=== PATIENT | female | born 1995 | race American Indian/Alaskan Native ===

== ENCOUNTER 2017-04-11 11:39 | Inpatient (IN) | payer BC, MEDICAID ==
[2017-04-11] MEDS ORDERED: SUBLIMAZE IV PRN (12:30)
[2017-04-11] MEDS ORDERED: MINERAL OIL PO PRN (12:30)
[2017-04-11] MEDS ORDERED: ZOFRAN IV PRN (12:30)
[2017-04-11] MEDS ORDERED: XYLOCAINE 2% INFILTRATI ONE (12:30)
[2017-04-11] MEDS ORDERED: BRETHINE SUB-Q PRN (12:30)
[2017-04-11] MEDS ORDERED: ePHEDrine SULFATE IV PRN (12:30)
[2017-04-11] MEDS ORDERED: HEPARIN ONE (12:36)
[2017-04-11] MEDS ORDERED: PITOCin/NS 20 UNIT/1000ML DRIP 20 UNITS/1,000 ML BAG IV SCH (13:00)
[2017-04-11 13:47] LABS: Mean Corpuscular HGB Conc 32 % (30-34); Mean Corpuscular Hemoglobin 28 pg (28-32); Mean Corpuscular Volume 85 fl (79-97); Platelet Count 276 K/mm3 (140-440); Red Blood Count 4.34 M/mm3 (3.65-5.03); Red Cell Distribution Width 15.5 % (13.2-15.2)
--- NOTE | 2017-04-11 14:13 | History and Physical Report ---
History of Present Illness Date of examination: 04/11/17 (pt sent from [facility] with YADIEL 4.6; IUGR) Date of admission: 04/11/17 11:39 History of present illness: EDC Confirmation: 03/26/2017 Gestational Age: 15 3/7 weeks Past Medical History Uterine Surgery (not C/S): negative Operations: negative Hospitalizations: negative Anesthesia Complications: negative Abnormal PAP: negative Uterine Anomaly: negative DESHAUN Exposure: negative Infertility: negative Infection History HIV Risk Eval: no Hx of STD: chlamydia Genetic History Patient's Age >35 years: no Thalassemia Mom: no Dad: no Neural Tube Defect Mom: no Dad: no Down's Syndrome Mom: no Dad: no Eugenio-Sachs Mom: no Dad: no Sickle Cell Disease/Trait Mom: no Dad: no Hemophilia Mom: no Dad: no Muscular Dystrophy Mom: no Dad: no Cystic Fibrosis Mom: no Dad: no Senthil Chorea Mom: no Dad: no Mental Retardation Mom: no Dad: no Fragile X Mom: no Dad: no Other Genetic/Chromosomal Disorder Mom: no Dad: no Child w/other defect Mom: no Dad: no >3 Spont. AB or stillbirth: no Meds/Drugs/ETOH since LMP: no Vital Signs: Patient Profile: 20 Years Old Female LMP: 06/19/2016 Height: 70 inches Weight: 333 pounds BP sittin / 70 Pt. in pain? no Vitals Entered By: Antoinette Pate (October 05, 2016 10:54 AM) Menstrual History: LMP (date): 06/19/2016 EDC by LMP: 03/26/2017 Best Working EDC: 03/26/2017 Past History : 1 Term Births: 0 Premature Births: 0 Living Children: 0 Para: 0 Mult. Births: 0 Prev : 0 Prev. attempt? 0 Aborta: 0 Elect. Ab: 0 Spont. 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 of genital herpes: no Hx of STD: chlamydia Active Medications: CONCERTA () ZITHROMAX 250 MG TABS (AZITHROMYCIN) Take 4 po now BUPROPION HCL TABS (BUPROPION HCL TABS) Current Allergies (reviewed today): No known allergies Past Medical History: Reviewed history from 08/03/2016 and no changes required: Depression ADHD Past Surgical History: negative Family History Summary: Reviewed history and no changes required: 10/05/2016 Other family member - Has Family History of Diabetes - Entered On: 08/03/2016 Other family member - Has No Family History of Breast Cancer - Entered On: 2016 Other family member - Has No Family History of Colon Cancer - Entered On: 2016 Other family member - Has No Family History of Ovarvian Cancer - Entered On: Social History: Patient is single Smoking History: Patient has never smoked. Risk Factors: Smoked Tobacco Use: Never smoker Drug use: no HIV high-risk behavior: no Alcohol use: no Exercise: no Seatbelt use: 100 % Review of Systems See HPI Laboratory Results Date/Time Collected: 10/05/2016 Urine HCG: positive PHYSICAL EXAM HEENT: normocephalic, no lesions or deformities Neck/Thyroid: supple, thyroid normal Skin no significant abnormal lesions or rashes Chest: respiratory effort normal, clear to auscultation Breasts: skin/areolae normal, no masses, no nipple discharge, no erythema/warmth /tenderness, and axillae normal. 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 No evidence of cystocele or rectocele. Cervix: No lesions; no cervical motion tenderness Uterus: unable to palpate due to obesity Adnexae: unable to palpate due to obesity Rectovaginal: exam defered Past History - Obstetrical History Expected Date of Delivery: 04/10/17 Actual Gestation: 40 Week(s) 1 Day(s) : 1 Para: 0 Hx # Term Pregnancies: 0 Number of Pregnancies: 0 Spontaneous Abortions: 0 Induced : 0 Number of Living Children: 0 Medications and Allergies Allergies Allergy/AdvReac Type Severity Reaction Status Date / Time No Known Allergies Allergy Unverified 04/11/17 11:40 Active Meds: Active Medications Ephedrine Sulfate (Ephedrine Sulfate) 10 mg IV Q2M PRN PRN Reason: Hypotension Fentanyl (Sublimaze) 100 mcg IV Q2H PRN PRN Reason: Labor Pain Lactated Ringer's (Lactated Ringers) 1,000 mls @ 125 mls/hr IV DIRECT SOPHIA Oxytocin/Sodium Chloride (Pitocin/Ns 20 Unit/1000ml Drip) 20 units in 1,000 mls @ 125 mls/hr IV DIRECT SOPHIA Oxytocin/Sodium Chloride (Pitocin/Ns 30 Unit/500ml) 30 units in 500 mls @ 4 mls /hr IV Q30MIN SOPHIA PRN Reason: Protocol Mineral Oil (Mineral Oil) 30 ml PO QHS PRN PRN Reason: Constipation Ondansetron HCl (Zofran) 4 mg IV Q8H PRN PRN Reason: Nausea And Vomiting Terbutaline Sulfate (Brethine) 0.25 mg SUB-Q ONCE PRN PRN Reason: Hyperstimulation/Hypertonicity - Vital Signs Vital signs: Vital Signs Temp Pulse Resp BP 98.6 F 125 H 20 124/62 04/11/17 12:51 04/11/17 12:51 04/11/17 12:51 04/11/17 12:51 Temp Pulse Resp BP Pulse Ox 98.6 F 125 H 20 124/62 04/11/17 12:51 04/11/17 13:06 04/11/17 12:51 04/11/17 13:06 - Physical Exam Breasts: Positive: deferred Cardiovascular: Regular rate, Normal S1, Normal S2 Lungs: Positive: Normal air movement Abdomen: Positive: normal appearance, soft, normal bowel sounds. Negative: distention, tenderness Genitourinary (Female): Positive: normal external genitalia, normal perenium Vulva: both: normal Vagina: Positive: normal moisture. Negative: discharge Cervix: Negative: lesion, discharge Uterus: Positive: normal size, normal contour Adnexa: both: normal Anus/Rectum: Positive: normal perianal skin, heme negative. Negative: rectal mass, hemorrhoids Extremities: Positive: edema Deep Tendon Reflex Grade: Normal +2 - Obstetrical FHR: category 1 Uterine Contraction Monitor Mode: External Cervical Dilatation: 3 (SROM meconium) Cervical Effacement Percentage: 70 station: -1 Uterine Contraction Pattern: Irregular Uterine Tone Measurement Phase: Resting Uterine Contraction Intensity: Mild Results Result Diagrams: 04/11/17 13:30 Abnormal lab results 04/11/17 Range/Units 13:30 WBC 17.0 H (4.5-11.0) K/mm3 RDW 15.5 H (13.2-15.2) % All other labs normal. Strep Gp B MATT Negative HBsAg Screen Negative Negative *1 Rubella Antibodies, IgG 1.37 index Immune >0.99 *2 Non-immune <0.90 Equivocal 0.90 - 0.99 Immune >0.99 ABO Grouping O *3 Rh Factor Positive *4 Please note: Prior records for this patient's ABO / Rh type are not available for additional verification. Antibody Screen Negative Negative *5 RPR Non Reactive Non Reactive *6 WBC [H] 12.6 x10E3/uL 3.4-10.8 *7 RBC 4.26 x10E6/uL 3.77-5.28 *8 Hemoglobin 11.9 g/dL 11.1-15.9 *9 Hematocrit 35.7 % 34.0-46.6 *10 MCV 84 fL 79-97 *11 MCH 27.9 pg 26.6-33.0 *12 MCHC 33.3 g/dL 31.5-35.7 *13 RDW 14.9 % 12.3-15.4 *14 Platelets 313 x10E3/uL 150-379 *15 Neutrophils 78 % *16 Lymphs 17 % *17 Monocytes 4 % *18 Eos 1 % *19 Basos 0 % *20 ! Immature Cells <No Reported Value> *21 Neutrophils (Absolute) [H] 9.8 x10E3/uL 1.4-7.0 *22 Lymphs (Absolute) 2.2 x10E3/uL 0.7-3.1 *23 Monocytes(Absolute) 0.5 x10E3/uL 0.1-0.9 *24 Eos (Absolute) 0.1 x10E3/uL 0.0-0.4 *25 Baso (Absolute) 0.0 x10E3/uL 0.0-0.2 *26 ! Immature Granulocytes 0 % *27 ! Immature Grans (Abs) 0.0 x10E3/uL 0.0-0.1 *28 ! NRBC <No Reported Value> *29 Hematology Comments: <No Reported Value> *30 Tests: (3) HB Solu + Rflx [facility] ([id number]) Hemoglobin (Hgb) Solubility Negative Negative *33 Tests: (4) Panel 762428 ([id number]) HIV Screen 4th Generation wRfx Non Reactive Non Reactive *34 Tests: (5) HCV Ab w/Rflx to Verification ([id number]) ! HCV Ab <0.1 s/co ratio 0.0-0.9 *35 Tests: (6) Comment: ([id number]) ! Comment: SPR[facility] *36 Non reactive HCV antibody screen is consistent with no HCV infection, unless recent infection is suspected or other evidence exists to indicate HCV infection. Tests: (7) Urine Culture, Routine ([id number]) Urine Culture, Routine Final report *37 Tests: (8) Result ([id number]) ! Result 1 No growth *38 Assessment and Plan - Patient Problems (1) IUGR (intrauterine growth restriction) Onset Date: ~03/21/17 Current Visit: Yes Status: Acute Plan to address problem: EFW 11% 5-15 as per [facility] report (2) Oligohydramnios Onset Date: ~04/11/17 Current Visit: Yes Status: Acute Qualifiers: Fetus number: single or unspecified fetus Trimester: third trimester Qualified Code(s): O41.03X0 - Oligohydramnios, third trimester, not applicable or unspecified Plan to address problem: Pt sent from [facility] office this morning where she had an YADIEL 4.6. Pt called out to L&D desk with c/o poss rupture of membranes. SVE 3,70,-1 Meconium stained fluid NICU notified. (3) Morbid obesity with BMI of 50.0-59.9, adult Onset Date: ~04/11/17 Current Visit: Yes Status: Acute Plan to address problem: 21yo @ 40 weeks with IUGR,Oligo,obesity, meconium stained fluid. GBS negative Orders in EMR aware of pt.
[2017-04-11] MEDS: PITOCin/NS 30 UNIT/500ML 30 UNITS/500 ML BAG IV SCH ×3 (15:32→18:43)
[2017-04-11] MEDS: LACTATED RINGERS 1,000 ML IV SCH ×2 (16:24→17:27)
--- NOTE | 2017-04-11 17:32 | Progress Note ---
Assessment and Plan pt resting Voicing no c/o SVE 6,90,-1 Pit @ 12mu Continue POC Anticipate delivery - Patient Problems (1) IUGR (intrauterine growth restriction) Onset Date: ~03/21/17 Current Visit: Yes Status: Acute (2) Oligohydramnios Onset Date: ~04/11/17 Current Visit: Yes Status: Acute Qualifiers: Fetus number: single or unspecified fetus Trimester: third trimester Qualified Code(s): O41.03X0 - Oligohydramnios, third trimester, not applicable or unspecified (3) Morbid obesity with BMI of 50.0-59.9, adult Onset Date: ~04/11/17 Current Visit: Yes Status: Acute Subjective - Subjective Date of service: 04/11/17 (comfortable with epidural) Interval history: EDC Confirmation: 03/26/2017 Gestational Age: 15 3/7 weeks Past Medical History Uterine Surgery (not C/S): negative Operations: negative Hospitalizations: negative Anesthesia Complications: negative Abnormal PAP: negative Uterine Anomaly: negative DESHAUN Exposure: negative Infertility: negative Infection History HIV Risk Eval: no Hx of STD: chlamydia Genetic History Patient's Age >35 years: no Thalassemia Mom: no Dad: no Neural Tube Defect Mom: no Dad: no Down's Syndrome Mom: no Dad: no Eugenio-Sachs Mom: no Dad: no Sickle Cell Disease/Trait Mom: no Dad: no Hemophilia Mom: no Dad: no Muscular Dystrophy Mom: no Dad: no Cystic Fibrosis Mom: no Dad: no Senthil Chorea Mom: no Dad: no Mental Retardation Mom: no Dad: no Fragile X Mom: no Dad: no Other Genetic/Chromosomal Disorder Mom: no Dad: no Child w/other defect Mom: no Dad: no >3 Spont. AB or stillbirth: no Meds/Drugs/ETOH since LMP: no Vital Signs: Patient Profile: 20 Years Old Female LMP: 06/19/2016 Height: 70 inches Weight: 333 pounds BP sittin / 70 Pt. in pain? no Vitals Entered By: Antoinette Pate (October 05, 2016 10:54 AM) Menstrual History: LMP (date): 06/19/2016 EDC by LMP: 03/26/2017 Best Working EDC: 03/26/2017 Past History : 1 Term Births: 0 Premature Births: 0 Living Children: 0 Para: 0 Mult. Births: 0 Prev : 0 Prev. attempt? 0 Aborta: 0 Elect. Ab: 0 Spont. 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 of genital herpes: no Hx of STD: chlamydia Active Medications: CONCERTA () ZITHROMAX 250 MG TABS (AZITHROMYCIN) Take 4 po now BUPROPION HCL TABS (BUPROPION HCL TABS) Current Allergies (reviewed today): No known allergies Past Medical History: Reviewed history from 08/03/2016 and no changes required: Depression ADHD Past Surgical History: negative Family History Summary: Reviewed history and no changes required: 10/05/2016 Other family member - Has Family History of Diabetes - Entered On: 08/03/2016 Other family member - Has No Family History of Breast Cancer - Entered On: 2016 Other family member - Has No Family History of Colon Cancer - Entered On: 2016 Other family member - Has No Family History of Ovarvian Cancer - Entered On: Social History: Patient is single Smoking History: Patient has never smoked. Risk Factors: Smoked Tobacco Use: Never smoker Drug use: no HIV high-risk behavior: no Alcohol use: no Exercise: no Seatbelt use: 100 % Review of Systems See HPI Laboratory Results Date/Time Collected: 10/05/2016 Urine HCG: positive PHYSICAL EXAM HEENT: normocephalic, no lesions or deformities Neck/Thyroid: supple, thyroid normal Skin no significant abnormal lesions or rashes Chest: respiratory effort normal, clear to auscultation Breasts: skin/areolae normal, no masses, no nipple discharge, no erythema/warmth /tenderness, and axillae normal. 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 No evidence of cystocele or rectocele. Cervix: No lesions; no cervical motion tenderness Uterus: unable to palpate due to obesity Adnexae: unable to palpate due to obesity Rectovaginal: exam defered Patient reports: movement normal Objective - Vital Signs Vital Signs: Vital Signs - 12hr 04/11/17 04/11/17 04/11/17 12:51 13:06 16:06 Temperature 98.6 F Pulse Rate 125 H 125 H 121 H Respiratory 20 Rate Blood Pressure 124/62 Blood Pressure 124/62 [Left] O2 Sat by Pulse 100 Oximetry 04/11/17 04/11/17 04/11/17 16:11 16:16 16:21 Temperature Pulse Rate 114 H 117 H 114 H Respiratory Rate Blood Pressure Blood Pressure [Left] O2 Sat by Pulse 100 100 100 Oximetry 04/11/17 04/11/17 04/11/17 16:36 16:41 16:46 Temperature Pulse Rate 124 H 135 H 125 H Respiratory Rate Blood Pressure 133/73 Blood Pressure [Left] O2 Sat by Pulse 100 100 100 Oximetry 04/11/17 04/11/17 04/11/17 16:51 16:56 17:01 Temperature Pulse Rate 121 H 122 H 124 H Respiratory Rate Blood Pressure Blood Pressure [Left] O2 Sat by Pulse 100 100 100 Oximetry 04/11/17 04/11/17 04/11/17 17:06 17:09 17:11 Temperature Pulse Rate 134 H 135 H 128 H Respiratory Rate Blood Pressure Blood Pressure [Left] O2 Sat by Pulse 100 78 L 100 Oximetry 04/11/17 04/11/17 04/11/17 17:16 17:17 17:19 Temperature Pulse Rate 130 H 117 H 123 H Respiratory Rate Blood Pressure 134/70 136/70 Blood Pressure [Left] O2 Sat by Pulse 99 Oximetry - Exam Breasts: deferred Cardiovascular: Regular rate Lungs: Normal air movement Abdomen: Present: normal appearance, soft. Absent: distention, tenderness Uterus: Present: normal FHR: auscultation normal, category 1 Uterine Contraction Monitor Mode: External Cervical Dilatation: 6 Cervical Effacement Percentage: 90 station: -1 Uterine Contraction Pattern: Regular Uterine Tone Measurement Phase: Resting Uterine Contraction Intensity: Moderate Extremities: edema Deep Tendon Reflex Grade: Normal +2 - Labs Labs: Abnormal Labs 04/11/17 13:30 WBC 17.0 H RDW 15.5 H Laboratory Results - last 24 hr 04/11/17 04/11/17 13:30 13:30 WBC 17.0 H RBC 4.34 Hgb 12.0 Hct 37.0 MCV 85 MCH 28 MCHC 32 RDW 15.5 H Plt Count 276 Blood Type O POSITIVE Antibody Screen Negative
[2017-04-11] MEDS ORDERED: fentaNYL-BUPIV 2 MCG/ML-0.125% 200 MCG/100 ML BAG EPIDURAL ONE (17:54)
--- NOTE | 2017-04-11 21:55 | Procedure Note ---
OB Delivery Note - Delivery Date of Delivery: 04/11/17 Surgeon: MEREDITH KRUEGER Estimated blood loss: 300cc - Vaginal Delivery position: OA Intrapartum events: other(please specify) (Oligohydramnios) Delivery augmentation: rupture of membranes Delivery monitor: external FHT, external uterine Route of delivery: vacuum extraction Indicators for instrumentation: maternal exhaustion Delivery placenta: spontaneous Episiotomy: none Delivery laceration: 1st degree Delivery repair: vicryl Anesthesia: epidural Delivery comments: NICU personnel present at delivery - Infant A at 1 minute: 8 at 5 minutes: 9 Gender: Female
[2017-04-11] MEDS ORDERED: PHENERGAN PO PRN (23:42)
[2017-04-11] MEDS ORDERED: DULCOLAX PR PRN (23:42)
[2017-04-11] MEDS ORDERED: BENADRYL PO PRN (23:42)
[2017-04-11] MEDS ORDERED: MILK OF MAGNESIA PO PRN (23:42)
[2017-04-11] MEDS ORDERED: TYLENOL PO PRN (23:42)
[2017-04-11] MEDS ORDERED: TUCKS PAD TP PRN (23:42)
[2017-04-11] MEDS ORDERED: NORCO 5/325 PO PRN (23:42)
[2017-04-11] MEDS ORDERED: SODIUM CHLORIDE FLUSH SYRINGE 10 ML IV PRN (23:42)
[2017-04-12] MEDS: MOTRIN PO SCH ×3 (00:08→12:01)
[2017-04-12] MEDS: COLACE PO SCH ×3 (00:55→22:35)
--- NOTE | 2017-04-12 07:03 | Progress Note ---
Assessment and Plan - Patient Problems (1) Spontaneous vaginal delivery Onset Date: ~04/11/17 Current Visit: Yes Status: Acute Plan to address problem: Pt resting Holding baby VSS with exception of tachycardia No c/o chest pain nor SOB FF below umb Lochia small Perineum slight swelling intact H&H pending Doing well s/p vag delivery P: encouraged OOB to ambulate and to increase hydration Continue pathway. Will cont to monitor VS Subjective - Subjective Date of service: 04/12/17 (pt rest No c/o voiced) Principal diagnosis: girl 04-11-17 Interval history: EDC Confirmation: 03/26/2017 Gestational Age: 15 3/7 weeks Past Medical History Uterine Surgery (not C/S): negative Operations: negative Hospitalizations: negative Anesthesia Complications: negative Abnormal PAP: negative Uterine Anomaly: negative DESHAUN Exposure: negative Infertility: negative Infection History HIV Risk Eval: no Hx of STD: chlamydia Genetic History Patient's Age >35 years: no Thalassemia Mom: no Dad: no Neural Tube Defect Mom: no Dad: no Down's Syndrome Mom: no Dad: no Eugenio-Sachs Mom: no Dad: no Sickle Cell Disease/Trait Mom: no Dad: no Hemophilia Mom: no Dad: no Muscular Dystrophy Mom: no Dad: no Cystic Fibrosis Mom: no Dad: no Senthil Chorea Mom: no Dad: no Mental Retardation Mom: no Dad: no Fragile X Mom: no Dad: no Other Genetic/Chromosomal Disorder Mom: no Dad: no Child w/other defect Mom: no Dad: no >3 Spont. AB or stillbirth: no Meds/Drugs/ETOH since LMP: no Vital Signs: Patient Profile: 20 Years Old Female LMP: 06/19/2016 Height: 70 inches Weight: 333 pounds BP sittin / 70 Pt. in pain? no Vitals Entered By: Antoinette Pate (October 05, 2016 10:54 AM) Menstrual History: LMP (date): 06/19/2016 EDC by LMP: 03/26/2017 Best Working EDC: 03/26/2017 Past History : 1 Term Births: 0 Premature Births: 0 Living Children: 0 Para: 0 Mult. Births: 0 Prev : 0 Prev. attempt? 0 Aborta: 0 Elect. Ab: 0 Spont. 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 of genital herpes: no Hx of STD: chlamydia Active Medications: CONCERTA () ZITHROMAX 250 MG TABS (AZITHROMYCIN) Take 4 po now BUPROPION HCL TABS (BUPROPION HCL TABS) Current Allergies (reviewed today): No known allergies Past Medical History: Reviewed history from 08/03/2016 and no changes required: Depression ADHD Past Surgical History: negative Family History Summary: Reviewed history and no changes required: 10/05/2016 Other family member - Has Family History of Diabetes - Entered On: 08/03/2016 Other family member - Has No Family History of Breast Cancer - Entered On: 2016 Other family member - Has No Family History of Colon Cancer - Entered On: 2016 Other family member - Has No Family History of Ovarvian Cancer - Entered On: Social History: Patient is single Smoking History: Patient has never smoked. Risk Factors: Smoked Tobacco Use: Never smoker Drug use: no HIV high-risk behavior: no Alcohol use: no Exercise: no Seatbelt use: 100 % Review of Systems See HPI Laboratory Results Date/Time Collected: 10/05/2016 Urine HCG: positive PHYSICAL EXAM HEENT: normocephalic, no lesions or deformities Neck/Thyroid: supple, thyroid normal Skin no significant abnormal lesions or rashes Chest: respiratory effort normal, clear to auscultation Breasts: skin/areolae normal, no masses, no nipple discharge, no erythema/warmth /tenderness, and axillae normal. 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 No evidence of cystocele or rectocele. Cervix: No lesions; no cervical motion tenderness Uterus: unable to palpate due to obesity Adnexae: unable to palpate due to obesity Rectovaginal: exam defered Patient reports: appetite normal, voiding normally, pain well controlled, ambulating normally : doing well Objective - Vital Signs Latest vital signs: Vital Signs Temp Pulse Resp BP BP Pulse Ox 04/12/17 04:14 98.8 F 127 H 18 127/58 98 04/11/17 23:53 127/50 04/11/17 23:50 98.8 F 139 H 18 127/50 99 04/11/17 22:59 135 H 99 04/11/17 22:54 100 04/11/17 22:53 136 H 100 04/11/17 22:48 118 H 100 04/11/17 22:43 139 H 100 04/11/17 22:39 167 H 78 L 04/11/17 22:38 151 H 99 04/11/17 22:35 136 H 102/51 04/11/17 22:33 73 94 04/11/17 22:32 88 04/11/17 22:27 144 H 100 04/11/17 22:23 98.7 F 22 04/11/17 22:22 141 H 112/58 04/11/17 22:10 140 H 100 04/11/17 22:05 138 H 100 04/11/17 22:04 151 H 140/59 88 04/11/17 21:35 144 H 109/51 04/11/17 21:24 131 H 109/53 04/11/17 21:04 61 L 04/11/17 21:01 150 H 89 04/11/17 20:59 115 H 100 04/11/17 20:54 116 H 100 04/11/17 20:49 123 H 100 04/11/17 20:44 109 H 100 04/11/17 20:39 112 H 99 04/11/17 20:34 111 H 100 04/11/17 20:29 173 H 100 04/11/17 20:24 131 H 114/53 100 04/11/17 20:19 126 H 100 04/11/17 20:14 129 H 100 04/11/17 20:09 122 H 100 04/11/17 20:04 119 H 100 04/11/17 19:59 133 H 100 04/11/17 19:54 115 H 100 04/11/17 19:49 116 H 100 04/11/17 19:47 122 H 111/51 04/11/17 19:44 124 H 100 11/29/17 19:42 98.1 F 20 04/11/17 19:39 122 H 100 04/11/17 19:34 119 H 100 04/11/17 19:29 123 H 100 04/11/17 19:24 119 H 100 04/11/17 19:19 117 H 100 04/11/17 19:14 129 H 100 04/11/17 19:09 125 H 100 04/11/17 19:04 120 H 100 04/11/17 18:59 125 H 100 04/11/17 18:54 128 H 100 04/11/17 18:49 119 H 100 04/11/17 18:44 111 H 100 04/11/17 18:39 113 H 100 04/11/17 18:34 117 H 100 04/11/17 18:29 111 H 100 04/11/17 18:24 114 H 100 04/11/17 18:19 119 H 100 04/11/17 18:14 121 H 100 04/11/17 18:10 18 04/11/17 18:09 114 H 100 04/11/17 18:04 112 H 100 04/11/17 17:59 114 H 100 04/11/17 17:54 114 H 100 04/11/17 17:49 127 H 100 04/11/17 17:44 127 H 100 04/11/17 17:41 125 H 108/54 04/11/17 17:39 122 H 109/57 100 04/11/17 17:37 122 H 107/53 04/11/17 17:34 123 H 127/72 99 04/11/17 17:19 123 H 136/70 04/11/17 17:17 117 H 134/70 04/11/17 17:16 130 H 99 04/11/17 17:11 128 H 100 04/11/17 17:09 135 H 78 L 04/11/17 17:06 134 H 100 04/11/17 17:01 124 H 100 04/11/17 16:56 122 H 100 04/11/17 16:51 121 H 100 04/11/17 16:46 125 H 100 04/11/17 16:41 135 H 100 04/11/17 16:36 124 H 133/73 100 04/11/17 16:21 114 H 100 04/11/17 16:16 117 H 100 04/11/17 16:11 114 H 100 04/11/17 16:06 121 H 100 04/11/17 13:06 125 H 124/62 04/11/17 12:51 98.6 F 125 H 20 124/62 Intake and Output 04/11/17 04/11/17 04/12/17 14:59 22:59 06:59 Intake Total 152.783 400 Output Total 200 1000 Balance -47.217 -600 Intake: IV 152.783 Lactated Ringers 1,000 ml 131.25 @ 125 mls/hr IV DIRECT SOPHIA Rx#:[id number] PITOCin/NS 30 UNIT/500ML 21.533 30 units In 500 ml @ 4 mls/hr IV Q30MIN SOPHIA Rx#: [id number] Oral 400 Output: Urine 200 1000 Indwelling Catheter 200 300 Void 700 Other: Total, Intake Amount 400 Total, Output Amount 200 300 Weight 382 lb Estimated Blood Loss 300 Patient Weight 04/12/17 06:59 Weight 382 lb - Exam Breasts: Present: normal Cardiovascular: Present: Regular rate Lungs: Present: Normal air movement Abdomen: Present: normal appearance, soft Vulva: both: normal Uterus: Present: normal, fundal height below umbilicus Extremities: Present: normal Deep Tendon Reflex Grade: Normal +2 Incision: Present: normal, dry, intact - Labs Labs: Abnormal lab results 04/11/17 Range/Units 13:30 WBC 17.0 H (4.5-11.0) K/mm3 RDW 15.5 H (13.2-15.2) %
[2017-04-12 10:44] LABS: Hemoglobin 11.4 gm/dl (10.1-14.3)
[2017-04-12] MEDS: PRENATAL VITAMIN PO SCH (12:01)
[2017-04-13] MEDS: MOTRIN PO SCH ×2 (00:08→05:11)
[2017-04-13] MEDS ORDERED: BOOSTRIX IM ONE (06:00)
--- NOTE | 2017-04-13 08:21 | Progress Note ---
Assessment and Plan patient doing well, no complaints. desires d/c home today. without concern, lochia scant, H&H stable, VSSAF. Plan for d/c home with routine f/u in office. - Patient Problems (1) Spontaneous vaginal delivery Onset Date: ~04/11/17 Current Visit: Yes Status: Acute Subjective - Subjective Date of service: 04/13/17 Principal diagnosis: girl 04-11-17 Patient reports: appetite normal, voiding normally, pain well controlled, ambulating normally, no dizzy ambulation, no nauseated : doing well, nursing well Objective - Vital Signs Latest vital signs: Vital Signs Temp Pulse Resp BP 04/13/17 01:15 98.2 F 104 H 20 117/79 04/12/17 16:30 98.3 F 118 H 20 145/70 04/12/17 12:40 97.7 F 119 H 18 147/77 04/12/17 08:40 98.2 F 104 H 18 125/61 Intake and Output 04/12/17 04/13/17 04/13/17 23:59 07:59 15:59 Intake Total 240 240 Balance 240 240 Intake: Oral 240 240 Other: Total, Intake Amount 240 240 # Voids Void 1 1 - Exam Breasts: Present: normal, Cardiovascular: Present: Regular rate Lungs: Present: Clear to auscultation, Normal air movement Abdomen: Present: normal appearance, soft, normal bowel sounds Vulva: both: laceration/episiotomy Uterus: Present: normal, firm, fundal height at umbilicus Extremities: Present: normal Incision: Present: normal, dry, intact
--- NOTE | 2017-04-13 08:25 | Discharge Summary ---
Providers - Providers Date of Admission: 04/11/17 11:39 Date of discharge: 04/13/17 (desires d/c home) Attending physician: MEREDITH KRUEGER 04/11/17 23:42 Consult to [employer] Brakeman [CONS] Routine Reason For Exam: assistance with , SNS Primary care physician: PEGGY KRUEGER Hospitalization Reason for admission: induction of labor Delivery: Episiotomy: none Laceration: 1st degree Other procedures: none complications: none Discharge diagnosis: IUP at term delivered [place] baby: female Hospital course: uncomplicated vaginal Condition at discharge: Good Disposition: DC-01 TO HOME OR SELFCARE - Discharge Diagnoses (1) Spontaneous vaginal delivery Status: Acute Plan - Provider Discharge Summary Activity: routine, no sex for 6 weeks, no heavy lifting 4 weeks, no strenuous exercise Diet: routine Instructions: routine Additional instructions: [] Smoking cessation referral if applicable(refer to patient education folder for contact #) [] Refer to [facility] Booklet Call your doctor immediately for: * Fever > 100.5 * Heavy vaginal bleeding ( >1 pad per hour) * Severe persistent headache * Shortness of breath * Reddened, hot, painful area to leg or breast * Drainage or odor from incision. * Keep incision clean and dry at all times and follow doctor's instructions regarding bathing/showering - Follow up plan Follow up: PEGGY KRUEGER MD [Primary Care Provider] - 05/15/17 (Congratulations! Please call [phone] to schedule your visit in 4 weeks. Call for any questions or concerns. )
[2017-04-13] MEDS: PRENATAL VITAMIN PO SCH (09:07)
[2017-04-13] MEDS: COLACE PO SCH (09:07)
[2017-04-13] MEDS ORDERED: Fluarix Quad 2017-2018(36 MOS+ IM ONE (12:00)
[2017-04-13 16:20] VITALS: BP 134/80
== END 2017-04-13 16:00 | disposition home or self-care (01) | DRG 775 ==
LOC: LD 11:39 → UNDOADMIN 11:39 → OB 23:07
PROVIDERS: ADMIT Obstetrics & Gynecology; ATTEND Obstetrics & Gynecology
PROC: 3E0234Z Introduction of Serum, Toxoid and Vaccine into Muscle, Percutaneous Approach (ICD-10-PCS; principal; 2017-04-11)
PROC: 10D07Z6 Extraction of Products of Conception, Vacuum, Via Natural or Artificial Opening (ICD-10-PCS; 2017-04-11)
PROC: 3E0R3BZ Introduction of Anesthetic Agent into Spinal Canal, Percutaneous Approach (ICD-10-PCS; 2017-04-11)
PROC: 00HU33Z Insertion of Infusion Device into Spinal Canal, Percutaneous Approach (ICD-10-PCS; 2017-04-11)
PROC: 0HQ9XZZ Repair Perineum Skin, External Approach (ICD-10-PCS; 2017-04-11)
DX: O41.03X0 Oligohydramnios, third trimester, not applicable or unspecified (principal); F33.9 Major depressive disorder, recurrent, unspecified; Z68.43 Body mass index [BMI] 50.0-59.9, adult; E66.01 Morbid (severe) obesity due to excess calories; O99.344 Other mental disorders complicating childbirth; O99.214 Obesity complicating childbirth; O77.0 Labor and delivery complicated by meconium in amniotic fluid; O36.5930 Maternal care for other known or suspected poor fetal growth, third trimester, not applicable or unspecified; O70.0 First degree perineal laceration during delivery; F90.9 Attention-deficit hyperactivity disorder, unspecified type; O76 Abnormality in fetal heart rate and rhythm complicating labor and delivery; Z3A.40 40 weeks gestation of pregnancy; Z23 Encounter for immunization; Z37.0 Single live birth
CPT/HCPCS: 36415; 85014; 85018; 85027; 86592; 86850; 86900; 86901; 90471; 90686; 90715; 99211; G0463; J1644; J2590; J7120